=== PATIENT | male | born 1940 | race Caucasian/White ===

== ENCOUNTER 2019-07-29 09:54 | Day surgery (SDC) | payer MEDICARE, BC ==
[~2019-07-29] VITALS: Ht 165.1 cm; Wt 75.4 kg
[~2019-07-29 09:54] MED LIST: ASPI325EC PO; Aspir 8181 MG PO; CIPR500 PO; CYAN1000 PO; DIPH50 PO; DOCU100 PO; DOXY100 PO; ENOX40I SC; HYDMOR2 PO; LAVAP17G; MELO7.5 PO; METROGEL; MONT10T PO; Mobic15 MG PO; Omeprazole20 M1 PO; PROBIOTIC1 EAC1 PO; SIMV10 PO; TRIHYD253A PO; TRIHYD253B PO; Toprol Xl25 MG PO; [UNRECOGNIZED DRUG - OTHER]
== END 2019-07-29 11:47 | disposition home or self-care (01) ==
LOC: ORSCSDS 09:54
PROVIDERS: Internal Medicine Gastroenterology
PROC: 0DJD8ZZ Inspection of Lower Intestinal Tract, Via Natural or Artificial Opening Endoscopic (ICD-10-PCS; principal; 2019-07-29 11:15)
DX: Z12.11 Encounter for screening for malignant neoplasm of colon (principal); K57.30 Diverticulosis of large intestine without perforation or abscess without bleeding; K64.8 Other hemorrhoids; I10 Essential (primary) hypertension; E78.00 Pure hypercholesterolemia, unspecified; Z87.891 Personal history of nicotine dependence; Z79.899 Other long term (current) drug therapy
CPT/HCPCS: J2704; J7120

== ENCOUNTER → 2020-08-24 | Outpatient (CLI) | payer MEDICARE, BC | END | disposition home or self-care (01) | LOC: LAB SHORT 08:19 → PLD 08:19 | DX: C44.311 Basal cell carcinoma of skin of nose (principal) | CPT/HCPCS: 88305 ==

== ENCOUNTER → 2020-09-11 | Outpatient (CLI) | payer MEDICARE, BC | END | disposition home or self-care (01) | LOC: LAB 14:56 → LAB EV 14:56 | DX: U07.1 COVID-19 (principal) | CPT/HCPCS: U0003 ==

== ENCOUNTER → 2022-07-24 | Outpatient (CLI) | payer MEDICARE, BC | END | disposition home or self-care (01) | LOC: LAB 14:47 → LAB SHORT 14:47 | DX: L82.1 Other seborrheic keratosis (principal) | CPT/HCPCS: 88305 ==

== ENCOUNTER 2025-05-11 22:59 | Emergency (ER) | payer MEDICARE ==
[~2025-05-11] VITALS: Ht 165.1 cm; Wt 81.7 kg
[~2025-05-11 22:59] MED LIST changes: +BETA.05TCA BOTHEARS; +LOSA50 PO; +METO100ER PO; +ZOCOR20 MG PO
[2025-05-11 23:16] VITALS: BP 152/77
== END 2025-05-12 | disposition home or self-care (01) ==
LOC: ER 22:59
DX: T63.451A Toxic effect of venom of hornets, accidental (unintentional), initial encounter (principal); R21 Rash and other nonspecific skin eruption; R20.0 Anesthesia of skin; Z79.899 Other long term (current) drug therapy
CPT/HCPCS: 99282; A9270; J7512